=== PATIENT | female | born 1970 | race Hispanic/Latino ===

== ENCOUNTER 2017-07-24 10:21 | Emergency (ER) | payer OTHER, SELFPAY ==
--- NOTE | 2017-07-24 13:38 | RAD ---
TWO VIEWS LUMBOSACRAL SPINE: COMPARISON: None. HISTORY: Low back pain. The patient feels a knot in the low back. FINDINGS: Two views of the lumbosacral spine show normal height and alignment of the vertebral bodies and inter vertebral disks without fracture or subluxation. Small osteophytes are seen throughout the lumbar sp ine. Posterior facet arthrosis is seen in the lower lumbosacral spine. IMPRESSION: Mild degenerative changes of the lumbar spine without acute osseous abnormality. POS: [facility]
[2017-07-24] MEDS ORDERED: Ketorolac Tromethamine 30 MG/ML VIAL ONE (13:43)
[2017-07-24 13:51] LABS: Bilirubin Negative (Negative); Blood, Urine Negative (Negative); Glucose, Urine (Dipstick) Negative (Negative); Ketone, Urine Negative (Negative); Nitrite Negative (Negative); Protein, Urine (Dipstick) Negative (Neg-Trace); Urobilinogen 0.2 mg/dL (0.2-1.0)
[2017-07-24 13:58] LABS: Bacteria/HPF 1+ HPF (None Seen); Hyaline Casts/LPF 0-3 HYALINE CAST LPF (0-3 Hyaline); RBC/HPF 0-3 HPF (0-3)
[2017-07-24] MEDS ORDERED: Lidocaine 1% PF 5 ML VIAL ONE (14:24)
[2017-07-24] MEDS ORDERED: cefTRIAXone\\ROCEPHIN 500 MG VIAL ONE (14:24)
== END 2017-07-24 15:10 | disposition home or self-care (01) ==
LOC: ERS 10:21
DX: N30.00 Acute cystitis without hematuria (principal); E66.9 Obesity, unspecified; I10 Essential (primary) hypertension; E11.9 Type 2 diabetes mellitus without complications; Z86.73 Personal history of transient ischemic attack (TIA), and cerebral infarction without residual deficits
CPT/HCPCS: 72100; 81003; 81015; 96372; J0696; J1885; J2001

== ENCOUNTER 2017-09-01 21:35 | Emergency (ER) | payer SELFPAY ==
[2017-09-01 23:31] LABS: #Basophils 0.1 thou/uL (0.0-0.2); #Eosinphils 0.2 thou/uL (0.0-0.7); #Lymphocytes 4.1 thou/uL (1.20-3.40); #Monocytes 0.7 thou/uL (0.11-0.59); #Neutrophils 6.2 thou/uL (1.40-6.50); %Basophils 0.9 % (0.0-1.0); %Eosinophils 1.4 % (0.0-10.0); %Lymphocytes 36.1 % (21.0-51.0); %Monocytes 5.9 % (0.0-10.0); %Neutrophils 55.7 % (42.0-75.0); Hemoglobin 11.6 g/dL (12.0-16.0); Mean Corpuscular HGB CONC 32.2 g/dL (32.0-36.0); Mean Corpuscular Volume 83.8 fl (81.0-99.0); Mean Platelet Volume 8.2 fL (7.4-10.4); Platelet Count 291 thou/uL (130-400); RBC Distribution Width 14.1 % (11.5-14.5); Red Blood Cell (RBC) Count 4.31 mill/uL (4.20-5.40); White Blood Cell (WBC) Count 11.2 thou/uL (4.8-10.8)
[2017-09-01 23:51] LABS: ALT (SGPT) 16 U/L (8-55); AST (SGOT) 18 U/L (5-34); Albumin 4.2 g/dL (3.5-5.0); Alkaline Phosphatase 107 U/L (40-150); Anion Gap 15 mmol/L (10-20); BUN (Urea Nitrogen) 20 mg/dL (7.0-18.7); Bilirubin, Total 0.2 mg/dL (0.2-1.2); CK (CPK) 133 U/L (29-168); Calc. Creatinine Clearance 0 mL/min (70-130); Calcium 9.3 mg/dL (7.8-10.44); Carbon Dioxide 22 mmol/L (22-29); Chloride 106 mmol/L (98-107); Estimated GFR-MDRD 79; Globulin 3.6 g/dL (2.4-3.5); Glucose 125 mg/dL (70-105); Lipase 17 U/L (8-78); Potassium 3.8 mmol/L (3.5-5.1); Protein, Total 7.8 g/dL (6.0-8.3); Sodium 139 mmol/L (136-145)
[2017-09-01 23:55] LABS: Troponin I Less than 0.010 ng/mL (< 0.028)
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
== END 2017-09-02 01:59 | disposition home or self-care (01) ==
LOC: ERS 21:35
DX: Z77.110 Contact with and (suspected) exposure to air pollution (principal); E78.5 Hyperlipidemia, unspecified; E11.9 Type 2 diabetes mellitus without complications; E66.9 Obesity, unspecified; I10 Essential (primary) hypertension; M19.90 Unspecified osteoarthritis, unspecified site; Z86.73 Personal history of transient ischemic attack (TIA), and cerebral infarction without residual deficits
CPT/HCPCS: 36415; 71045; 80053; 82550; 82553; 83690; 84484; 85025; 93005

== ENCOUNTER 2017-12-04 18:44 | Emergency (ER) | payer SELFPAY ==
[2017-12-04 19:08] LABS: #Basophils 0.1 thou/uL (0.0-0.2); #Eosinphils 0.1 thou/uL (0.0-0.7); #Lymphocytes 3.9 thou/uL (1.20-3.40); #Monocytes 0.8 thou/uL (0.11-0.59); #Neutrophils 5.5 thou/uL (1.40-6.50); %Basophils 0.6 % (0.0-1.0); %Eosinophils 1.4 % (0.0-10.0); %Monocytes 7.3 % (0.0-10.0); %Neutrophils 52.6 % (42.0-75.0); Hemoglobin 12.8 g/dL (12.0-16.0); Mean Corpuscular HGB CONC 32.9 g/dL (32.0-36.0); Mean Corpuscular Hemoglobin 27.4 pg (27.0-31.0); Mean Corpuscular Volume 83.1 fl (81.0-99.0); Platelet Count 287 thou/uL (130-400); RBC Distribution Width 14.2 % (11.5-14.5); Red Blood Cell (RBC) Count 4.68 mill/uL (4.20-5.40); White Blood Cell (WBC) Count 10.4 thou/uL (4.8-10.8)
[2017-12-04 19:31] LABS: ALT (SGPT) 12 U/L (8-55); AST (SGOT) 13 U/L (5-34); Albumin 4.4 g/dL (3.5-5.0); Alkaline Phosphatase 122 U/L (40-150); Anion Gap 15 mmol/L (10-20); BUN (Urea Nitrogen) 9 mg/dL (7.0-18.7); Bilirubin, Total 0.2 mg/dL (0.2-1.2); CK (CPK) 48 U/L (29-168); Calc. Creatinine Clearance 0 mL/min (70-130); Calcium 9.7 mg/dL (7.8-10.44); Carbon Dioxide 23 mmol/L (22-29); Chloride 104 mmol/L (98-107); Estimated GFR-MDRD 90; Globulin 3.6 g/dL (2.4-3.5); Glucose 117 mg/dL (70-105); Potassium 4.3 mmol/L (3.5-5.1); Sodium 138 mmol/L (136-145)
[2017-12-04 19:33] LABS: CKMB 1.3 ng/mL (0-6.6); Troponin I Less than 0.010 ng/mL (< 0.028)
[2017-12-04 20:53] LABS: Bilirubin Negative (Negative); Blood, Urine Negative (Negative); Clarity CLOUDY (Clear); Glucose, Urine (Dipstick) Negative (Negative); Leukocyte Negative (Negative); Nitrite Negative (Negative); Protein, Urine (Dipstick) Negative (Neg-Trace); Specific Gravity, Urine 1.011 (1.002-1.036); Urobilinogen 0.2 mg/dL (0.2-1.0); pH, Urine 6.5 (5.0-9.0)
--- NOTE | 2017-12-04 21:09 | CT ---
NONCONTRAST HEAD CT: HISTORY: Dizziness. Headache. Nausea. COMPARISON: 09/02/2016 TECHNIQUE: A noncontrast head CT is performed from the skull base to the skull vertex. FINDINGS: No parenchymal hemorrhage. No extraaxial hematoma. No midline shift. The basilar cisterns are pinedo nt. Brain volume is age appropriate. cortical Eduardo white matter differentiation is preserved. Vent ricles and sulci are patent and symmetric. The calvarium is intact. Adequate aeration of the sinuses and mastoid air cells. IMPRESSION: No acute intracranial process. POS: [facility]
[2017-12-04] MEDS ORDERED: Lorazepam 2 MG/ML VIAL ONE (21:19)
[2017-12-04] MEDS ORDERED: Meclizine HCl 25 MG TAB ONE (21:20)
[2017-12-04] MEDS ORDERED: Dexamethasone 4 mg/ml Vial ONE (21:20)
== END 2017-12-04 22:31 | disposition home or self-care (01) ==
LOC: ERS 18:44
DX: R42 Dizziness and giddiness (principal); R51 Headache; B35.9 Dermatophytosis, unspecified; E78.5 Hyperlipidemia, unspecified; E11.9 Type 2 diabetes mellitus without complications; E66.9 Obesity, unspecified; I10 Essential (primary) hypertension; M19.90 Unspecified osteoarthritis, unspecified site; Z86.73 Personal history of transient ischemic attack (TIA), and cerebral infarction without residual deficits; Z79.84 Long term (current) use of oral hypoglycemic drugs; Z79.899 Other long term (current) drug therapy
CPT/HCPCS: 36415; 70450; 80053; 81003; 82550; 82553; 84484; 85025; 93005; 96361; 96374; 96375; J1100; J2060

== ENCOUNTER 2018-02-22 14:24 | Emergency (ER) | payer SELFPAY ==
[2018-02-22 15:07] LABS: #Basophils 0.1 thou/uL (0.0-0.2); #Eosinphils 0.1 thou/uL (0.0-0.7); #Lymphocytes 3.6 thou/uL (1.20-3.40); #Monocytes 0.7 thou/uL (0.11-0.59); #Neutrophils 6.1 thou/uL (1.40-6.50); %Basophils 0.8 % (0.0-1.0); %Eosinophils 1.2 % (0.0-10.0); %Lymphocytes 33.9 % (21.0-51.0); %Monocytes 6.3 % (0.0-10.0); %Neutrophils 57.7 % (42.0-75.0); Hemoglobin 12.3 g/dL (12.0-16.0); Mean Corpuscular HGB CONC 33.8 g/dL (32.0-36.0); Mean Corpuscular Hemoglobin 28.5 pg (27.0-31.0); Mean Corpuscular Volume 84.4 fL (78.0-98.0); Platelet Count 240 thou/uL (130-400); RBC Distribution Width 13.7 % (11.5-14.5); Red Blood Cell (RBC) Count 4.33 mill/uL (4.20-5.40); White Blood Cell (WBC) Count 10.6 thou/uL (4.8-10.8)
[2018-02-22 15:25] LABS: ALT (SGPT) 11 U/L (8-55); AST (SGOT) 9 U/L (5-34); Albumin 4.1 g/dL (3.5-5.0); Alkaline Phosphatase 107 U/L (40-150); Anion Gap 14 mmol/L (10-20); BUN (Urea Nitrogen) 8 mg/dL (7.0-18.7); Bilirubin, Total 0.3 mg/dL (0.2-1.2); Calc. Creatinine Clearance 0 mL/min (70-130); Calcium 9.4 mg/dL (7.8-10.44); Carbon Dioxide 24 mmol/L (22-29); Chloride 104 mmol/L (98-107); Estimated GFR-MDRD 83; Glucose 172 mg/dL (70-105); Potassium 3.9 mmol/L (3.5-5.1); Protein, Total 7.1 g/dL (6.0-8.3); Sodium 138 mmol/L (136-145)
[2018-02-22 15:37] LABS: CKMB 0.9 ng/mL (0-6.6); Troponin I Less than 0.010 ng/mL (< 0.028)
[2018-02-22] MEDS ORDERED: Ketorolac Tromethamine 30 MG/ML VIAL ONE (15:48)
--- NOTE | 2018-02-22 15:52 | RAD ---
THREE VIEWS LEFT SHOULDER: History: Left arm burning and tingling, shooting down entire left arm. FINDINGS: Images demonstrate no evidence of a left shoulder fracture, subluxation, or bony lesion. IMPRESSION: Normal three views left shoulder. POS: [facility]
== END 2018-02-22 16:18 | disposition home or self-care (01) ==
LOC: ERS 14:24
DX: M25.512 Pain in left shoulder (principal); E11.9 Type 2 diabetes mellitus without complications; E66.9 Obesity, unspecified; I10 Essential (primary) hypertension; M19.90 Unspecified osteoarthritis, unspecified site; E78.5 Hyperlipidemia, unspecified; Z79.84 Long term (current) use of oral hypoglycemic drugs; Z79.82 Long term (current) use of aspirin; Z79.899 Other long term (current) drug therapy; Z86.73 Personal history of transient ischemic attack (TIA), and cerebral infarction without residual deficits
CPT/HCPCS: 36415; 80053; 82553; 84484; 85025; 93005; 96372; J1885

== ENCOUNTER 2022-03-21 12:19 | Emergency (ER) | payer SELFPAY ==
[2022-03-21] MEDS ORDERED: Acetaminophen 500 MG TAB ONE (13:23)
[2022-03-21] MEDS ORDERED: Ibuprofen 800 MG TAB ONE (13:23)
== END 2022-03-21 13:36 | disposition home or self-care (01) ==
LOC: ERS 12:19
DX: M54.41 Lumbago with sciatica, right side (principal); E78.5 Hyperlipidemia, unspecified; E78.00 Pure hypercholesterolemia, unspecified; E11.9 Type 2 diabetes mellitus without complications; I10 Essential (primary) hypertension; E66.9 Obesity, unspecified; M19.90 Unspecified osteoarthritis, unspecified site; Z86.73 Personal history of transient ischemic attack (TIA), and cerebral infarction without residual deficits; Z79.82 Long term (current) use of aspirin; Z79.899 Other long term (current) drug therapy
CPT/HCPCS: 99283

== ENCOUNTER 2022-12-24 21:31 | Emergency (ER) | payer SELFPAY ==
[2022-12-24] MEDS ORDERED: Ketorolac Tromethamine 30 MG/ML VIAL ONE (21:55)
[2022-12-24] MEDS ORDERED: hydrALAZINE 20 MG/ML VIAL ONE (21:55)
[2022-12-24 22:42] LABS: #Basophils 0.1 thou/uL (0.0-0.2); #Eosinphils 0.2 thou/uL (0.0-0.7); #Monocytes 0.8 thou/uL (0.11-0.59); #Neutrophils 6.2 thou/uL (1.40-6.50); %Basophils 0.4 % (0.0-1.0); %Eosinophils 1.6 % (0.0-10.0); %Lymphocytes 37.6 % (21.0-51.0); %Monocytes 6.7 % (0.0-10.0); %Neutrophils 53.2 % (42.0-75.0); Hemoglobin 12.8 g/dL (12.0-16.0); Mean Corpuscular Hemoglobin 27.5 pg (27.0-31.0); Mean Platelet Volume 10.8 fL (7.4-10.4); Platelet Count 273 10x3/uL (130-400); Red Blood Cell (RBC) Count 4.65 mill/uL (4.20-5.40); White Blood Cell (WBC) Count 11.7 10x3/uL (4.8-10.8)
[2022-12-24 22:59] LABS: ALT (SGPT) 17 U/L (8-55); AST (SGOT) 14 U/L (5-34); Albumin 4.1 g/dL (3.5-5.0); Alkaline Phosphatase 95 U/L (40-110); Anion Gap 14 mmol/L (10-20); BUN (Urea Nitrogen) 14 mg/dL (9.8-20.1); Bilirubin, Total 0.2 mg/dL (0.2-1.2); CK (CPK) 95 U/L (29-168); Calc. Creatinine Clearance 0 mL/min (70-130); Calcium 9.7 mg/dL (7.8-10.44); Carbon Dioxide 27 mmol/L (22-29); Chloride 102 mmol/L (98-107); Estimated GFR 93; Globulin 3.2 g/dL (2.4-3.5); Glucose 136 mg/dL (70-105); Protein, Total 7.3 g/dL (6.0-8.3); Sodium 139 mmol/L (136-145)
== END 2022-12-25 01:38 | disposition home or self-care (01) ==
LOC: ERS 21:31
DX: R06.02 Shortness of breath (principal); R00.0 Tachycardia, unspecified; D72.829 Elevated white blood cell count, unspecified; E11.9 Type 2 diabetes mellitus without complications; E78.00 Pure hypercholesterolemia, unspecified; E66.9 Obesity, unspecified; I10 Essential (primary) hypertension; Z79.899 Other long term (current) drug therapy; Z79.82 Long term (current) use of aspirin
CPT/HCPCS: 36415; 71045; 80053; 82550; 83880; 84443; 84484; 85025; 85379; 93005; 96361; 96374; 96375; J0360; J1885

== ENCOUNTER 2025-07-19 17:02 | Emergency (ER) | payer SELFPAY, OTHER ==
[2025-07-19] MEDS ORDERED: Acetaminophen 500 MG TAB ONE (19:25)
== END 2025-07-19 21:00 | disposition left against medical advice (07) ==
LOC: ERS 17:02
DX: M54.2 Cervicalgia (principal); E11.9 Type 2 diabetes mellitus without complications; I10 Essential (primary) hypertension; Z55.6 Problems related to health literacy
CPT/HCPCS: J2060